=== PATIENT | female | born 1995 | race Caucasian/White ===

== ENCOUNTER 2023-03-29 02:15 | Inpatient (IN) | payer OTHER ==
[2023-03-29] MEDS ORDERED: ELECTROLYTE-148 SOLN 1,000 ML IV SCH (03:00)
[2023-03-29 03:20] LABS: BASO % 0.3 % (0-2.0); EOS % 2.2 % (0-4.5); HEMATOCRIT 37.7 % (32.4-45.2); HEMOGLOBIN 12.9 GM/dL (10.7-15.3); LYMPH % 22.1 % (8-40); MCHC 34.3 g/dl (32.0-36.0); MEAN CELL VOLUME 90.4 fl (80-96); MEAN PLT VOLUME 7.5 fl (7.5-11.1); MONO % 9.3 % (3.8-10.2); NEUT % 66.1 % (42.8-82.8); PLATELET COUNT 291 10^3/uL (134-434); RBC 4.16 M/mm3 (3.60-5.2); RDW 13.6 % (11.6-15.6); WHITE BLOOD COUNT 11.6 K/mm3 (4.0-10.0)
[2023-03-29 03:27] VITALS: BMI 27.4
[2023-03-29 03:30] LABS: INR 0.94 (0.83-1.09); PROTHROMBIN TIME (PATIENT) 10.9 SEC (9.7-13.0)
[2023-03-29 03:33] LABS: ACTIVATED PTT 28.2 SECONDS (25.2-36.5)
[2023-03-29 03:39] LABS: POTASSIUM 3.8 mmol/L (3.5-5.1)
[2023-03-29 03:41] LABS: BLOOD UREA NITROGEN 6.9 mg/dL (7-18); CALCIUM 8.9 mg/dL (8.5-10.1)
[2023-03-29 03:44] LABS: CREATININE 0.5 mg/dL (0.55-1.3)
[2023-03-29] MEDS ORDERED: OXYTOCIN 20 UNITS in 0.9% NS 20 UNIT/1,000 ML INFUS.BAG IV ONE (03:48)
[2023-03-29] MEDS ORDERED: METHYLERGONOVINE MALEATE 0.2 MG/1 ML AMP IM PRN (05:01)
[2023-03-29] MEDS ORDERED: BENZOCAINE 20% 57 GM BOTTLE TP PRN (05:01)
[2023-03-29] MEDS ORDERED: ACETAMINOPHEN 325 MG TABLET (FP) PO PRN (05:01)
[2023-03-29] MEDS ORDERED: WITCH HAZEL 50% (TUCKS) 40 PAD/JAR PAD TP PRN (05:01)
[2023-03-29] MEDS ORDERED: BISACODYL 10 MG SUPP.RECT RC PRN (05:01)
[2023-03-29] MEDS ORDERED: BENZOCAINE 28 GM HEMORRHOIDAL OINTMENT TP PRN (05:01)
[2023-03-29] MEDS ORDERED: OXYTOCIN 20 UNITS in 0.9% NS 20 UNIT/1,000 ML INFUS.BAG IV SCH (05:15)
[2023-03-29] MEDS: PRENATAL VITAMINS W/ FOLIC ACID TABLET (FP) PO SCH (09:14)
[2023-03-29] MEDS: IBUPROFEN 600 MG TABLET (FP) PO PRN ×2 (09:14→21:49)
[2023-03-30 06:39] LABS: BASO % 0.5 % (0-2.0); EOS % 2.5 % (0-4.5); HEMATOCRIT 33.6 % (32.4-45.2); HEMOGLOBIN 11.3 GM/dL (10.7-15.3); LYMPH % 25.2 % (8-40); MCH 31.4 pg (25.7-33.7); MCHC 33.7 g/dl (32.0-36.0); MEAN CELL VOLUME 93.3 fl (80-96); MEAN PLT VOLUME 7.7 fl (7.5-11.1); MONO % 7.4 % (3.8-10.2); NEUT % 64.4 % (42.8-82.8); PLATELET COUNT 265 10^3/uL (134-434); RDW 13.5 % (11.6-15.6); WHITE BLOOD COUNT 9.9 K/mm3 (4.0-10.0)
[2023-03-30] MEDS: PRENATAL VITAMINS W/ FOLIC ACID TABLET (FP) PO SCH (09:05)
[2023-03-30] MEDS: IBUPROFEN 600 MG TABLET (FP) PO PRN (19:15)
[2023-03-30] MEDS ORDERED: SENNOSIDES/DOCUSATE COMBO (SENNA PLUS) TABLET (UD) PO PRN (22:00)
[2023-03-31 08:39] VITALS: BP 112/69; PULSE 68; RESP 16; TEMP 98
[2023-03-31] MEDS: PRENATAL VITAMINS W/ FOLIC ACID TABLET (FP) PO SCH (10:11)
== END 2023-03-31 12:45 | disposition home or self-care (01) | DRG 560 ==
LOC: JDEL 02:15 → JLDR 02:37 → J3W 06:19
PROVIDERS: ADMIT Obstetrics & Gynecology; ATTEND Obstetrics & Gynecology
PROC: 0HQ9XZZ Repair Perineum Skin, External Approach (ICD-10-PCS; principal; 2023-03-29)
PROC: 10E0XZZ Delivery of Products of Conception, External Approach (ICD-10-PCS; 2023-03-29)
DX: O70.0 First degree perineal laceration during delivery (principal); Z3A.37 37 weeks gestation of pregnancy; Z37.0 Single live birth
CPT/HCPCS: 36415; 80048; 85025; 85610; 85730; 86780; 86850; 86900; 86901

== ENCOUNTER 2023-04-04 03:53 | Emergency (ER) | payer OTHER ==
[2023-04-04 04:07] VITALS: BP 125/87; PULSE 81; RESP 20; TEMP 98.2; BMI 27.3
[2023-04-04 04:47] LABS: INR 1.03 (0.83-1.09); PROTHROMBIN TIME (PATIENT) 11.9 SEC (9.7-13.0)
[2023-04-04] MEDS ORDERED: LIDOCAINE 1%/EPI 1:100000 (50 ML MULTI DOSE VIAL) ONE (04:49)
[2023-04-04 05:12] LABS: POTASSIUM 3.9 mmol/L (3.5-5.1)
[2023-04-04 05:15] LABS: ALBUMIN 3.2 g/dl (3.4-5.0); BLOOD UREA NITROGEN 16.4 mg/dL (7-18); CALCIUM 8.9 mg/dL (8.5-10.1)
[2023-04-04 05:19] LABS: CREATININE 0.8 mg/dL (0.55-1.3)
[2023-04-04 05:20] LABS: BILIRUBIN,TOTAL 0.7 mg/dL (0.2-1)
[2023-04-04 05:21] LABS: BASO % 0.3 % (0-2.0); EOS % 2.3 % (0-4.5); HEMATOCRIT 37.5 % (32.4-45.2); HEMOGLOBIN 12.5 GM/dL (10.7-15.3); LYMPH % 16.6 % (8-40); MCH 31.3 pg (25.7-33.7); MCHC 33.4 g/dl (32.0-36.0); MEAN CELL VOLUME 93.7 fl (80-96); MEAN PLT VOLUME 7.5 fl (7.5-11.1); MONO % 5.4 % (3.8-10.2); NEUT % 75.4 % (42.8-82.8); PLATELET COUNT 376 10^3/uL (134-434); RDW 13.7 % (11.6-15.6); WHITE BLOOD COUNT 10.4 K/mm3 (4.0-10.0)
[2023-04-04] MEDS ORDERED: IBUPROFEN 400 MG TABLET (FP) PO ONE ×2 (05:30→05:36)
== END 2023-04-04 06:43 | disposition home or self-care (01) ==
LOC: JER 03:53
DX: O72.1 Other immediate postpartum hemorrhage (principal); S31.41XA Laceration without foreign body of vagina and vulva, initial encounter; X58.XXXA Exposure to other specified factors, initial encounter
CPT/HCPCS: 36415; 80053; 85025; 85610; 86850; 86900; 86901; 99283-25

== ENCOUNTER 2023-05-01 17:24 | Emergency (ER) | payer OTHER ==
[2023-05-01 17:32] VITALS: BP 126/80; PULSE 118; RESP 20; TEMP 100.5; BMI 26.2
[2023-05-01 18:13] LABS: HEMATOCRIT 35.8 % (32.4-45.2); HEMOGLOBIN 12.4 GM/dL (10.7-15.3); MCH 30.9 pg (25.7-33.7); MCHC 34.7 g/dl (32.0-36.0); MEAN CELL VOLUME 89.1 fl (80-96); MEAN PLT VOLUME 7.1 fl (7.5-11.1); PLATELET COUNT 275 10^3/uL (134-434); RBC 4.02 M/mm3 (3.60-5.2); RDW 12.4 % (11.6-15.6)
[2023-05-01 18:35] LABS: POTASSIUM 3.5 mmol/L (3.5-5.1)
[2023-05-01 18:37] LABS: ALBUMIN 3.9 g/dl (3.4-5.0); BLOOD UREA NITROGEN 6.7 mg/dL (7-18); CALCIUM 8.5 mg/dL (8.5-10.1)
[2023-05-01 18:41] LABS: CREATININE 0.8 mg/dL (0.55-1.3)
[2023-05-01 18:42] LABS: BILIRUBIN,TOTAL 0.7 mg/dL (0.2-1); TOT PROT 7.6 g/dl (6.4-8.2)
[2023-05-01] MEDS ORDERED: CEPHALEXIN MONOHYDRATE 500 MG CAPSULE (UD) PO ONE (18:55)
[2023-05-01] MEDS ORDERED: IBUPROFEN 600 MG TABLET (FP) PO ONE ×2 (18:56→19:17)
[2023-05-01] MEDS ORDERED: CEPHALEXIN MONOHYDRATE 500 MG CAPSULE (UD) ONE (19:16)
== END 2023-05-01 19:24 | disposition home or self-care (01) ==
LOC: JER 17:24
DX: R50.9 Fever, unspecified (principal); N61.0 Mastitis without abscess; Z20.822 Contact with and (suspected) exposure to COVID-19
CPT/HCPCS: 0241U-QW; 36415; 80053; 85027; 99283-25

== ENCOUNTER 2024-12-01 16:57 | Emergency (ER) | payer OTHER ==
[2024-12-01 17:09] VITALS: RESP 18; BMI 29.4
[2024-12-01] MEDS ORDERED: KETOROLAC TROMETHAMINE 30 MG/1 ML VIAL ONE (17:41)
[2024-12-01] MEDS: KETOROLAC TROMETHAMINE 30 MG/1 ML VIAL IM ONE (17:54)
[2024-12-01] MEDS ORDERED: LIDOCAINE 4% PATCH TP ONE (18:15)
[2024-12-01] MEDS ORDERED: ACETAMINOPHEN INJECTION 100 ML ONE (18:15)
[2024-12-01] MEDS ORDERED: ONDANSETRON 4 MG/2 ML VIAL ONE (18:15)
[2024-12-01] MEDS: ONDANSETRON 4 MG/2 ML VIAL IVPUSH ONE (18:21)
[2024-12-01] MEDS: ACETAMINOPHEN 1000 MG/100 ML BAG IVPB ONE (18:21)
[2024-12-01] MEDS: LIDOCAINE 4% PATCH TP ONE (18:21)
[2024-12-01 18:22] LABS: HCG,QUALITATIVE URINE Positive; PH,URINE 6.5 (5.0-8.0); URINE APPEARANCE CLEAR; URINE BILIRUBIN NEGATIVE (NEGATIVE); URINE COLOR YELLOW; URINE GLUCOSE (UA) NEGATIVE (NEGATIVE); URINE KETONE NEGATIVE (NEGATIVE); URINE LEUK ESTERASE NEGATIVE (NEGATIVE); URINE NITRITE NEGATIVE (NEGATIVE); URINE PROTEIN NEGATIVE (NEGATIVE); URINE UROBILINOGEN 0.2 mg/dL (0.2-1.0)
[2024-12-01 18:25] LABS: BASO % 0.6 % (0-2.0); EOS % 2.6 % (0-4.5); HEMATOCRIT 38.7 % (32.4-45.2); HEMOGLOBIN 13.1 GM/dL (10.7-15.3); MCHC 33.9 g/dl (32.0-36.0); MEAN CELL VOLUME 88.6 fl (80-96); MEAN PLT VOLUME 7.1 fl (7.5-11.1); MONO % 10.8 % (3.8-10.2); PLATELET COUNT 414 10^3/uL (134-434); RBC 4.37 M/mm3 (3.60-5.2); RDW 13.7 % (11.6-15.6); WHITE BLOOD COUNT 8.2 K/mm3 (4.0-10.0)
[2024-12-01 18:27] LABS: INR 1.19 (0.83-1.09); PROTHROMBIN TIME (PATIENT) 13.1 SEC (9.7-13.0)
[2024-12-01 18:46] LABS: POTASSIUM 3.7 mmol/L (3.5-5.1)
[2024-12-01 18:48] LABS: ALBUMIN 4.4 g/dl (3.4-5.0); BLOOD UREA NITROGEN 8.3 mg/dL (7-18); CALCIUM 9.2 mg/dL (8.5-10.1)
[2024-12-01 18:51] LABS: CREATININE 0.7 mg/dL (0.55-1.3)
[2024-12-01 18:53] LABS: BILIRUBIN,TOTAL 0.5 mg/dL (0.2-1); TOT PROT 8.6 g/dl (6.4-8.2)
[2024-12-01 19:41] LABS: HIV INTERPRETATION NEGATIVE (NEGATIVE)
[2024-12-01 20:30] VITALS: BP 115/79; PULSE 80; TEMP 98.1
[2024-12-01] MEDS ORDERED: LIDOCAINE PATCH REMOVAL MC SCH (22:00)
== END 2024-12-01 20:30 | disposition home or self-care (01) ==
LOC: JER 16:57
PROC: 3E033NZ Introduction of Analgesics, Hypnotics, Sedatives into Peripheral Vein, Percutaneous Approach (ICD-10-PCS; principal; 2024-12-01)
DX: O26.891 Other specified pregnancy related conditions, first trimester (principal); R10.30 Lower abdominal pain, unspecified; Z3A.01 Less than 8 weeks gestation of pregnancy
CPT/HCPCS: 36415; 76817-TC; 80053; 81003; 83690; 84702; 84703; 85025; 85610; 85730; 86803; 86850; 86900; 86901; 87081; 87086; 87389; 99285-25; J0131

== ENCOUNTER 2024-12-08 16:25 | Emergency (ER) | payer OTHER ==
[2024-12-08 16:33] VITALS: BP 130/82; PULSE 81; RESP 18; TEMP 98.6; BMI 29.8
[2024-12-08 17:24] LABS: BASO % 0.5 % (0-2.0); EOS % 2.6 % (0-4.5); HEMATOCRIT 37.6 % (32.4-45.2); HEMOGLOBIN 12.8 GM/dL (10.7-15.3); LYMPH % 36.8 % (8-40); MCHC 33.9 g/dl (32.0-36.0); MEAN CELL VOLUME 88.4 fl (80-96); MEAN PLT VOLUME 7.1 fl (7.5-11.1); MONO % 7.9 % (3.8-10.2); NEUT % 52.2 % (42.8-82.8); PLATELET COUNT 383 10^3/uL (134-434); RBC 4.26 M/mm3 (3.60-5.2); RDW 13.8 % (11.6-15.6); WHITE BLOOD COUNT 8.3 K/mm3 (4.0-10.0)
[2024-12-08 17:53] LABS: POTASSIUM 4.1 mmol/L (3.5-5.1)
[2024-12-08 17:55] LABS: BLOOD UREA NITROGEN 7.9 mg/dL (7-18); CALCIUM 9.3 mg/dL (8.5-10.1)
[2024-12-08 17:58] LABS: CREATININE 0.6 mg/dL (0.55-1.3)
== END 2024-12-08 19:08 | disposition home or self-care (01) ==
LOC: JER 16:25
DX: O20.9 Hemorrhage in early pregnancy, unspecified (principal); Z3A.00 Weeks of gestation of pregnancy not specified
CPT/HCPCS: 36415; 80048; 84702; 85025; 99283-25

== ENCOUNTER 2024-12-30 14:14 | Emergency (ER) | payer OTHER ==
[2024-12-30 15:16] VITALS: BP 126/88; PULSE 84; RESP 18; TEMP 98.1; BMI 20.1
[2024-12-30 15:44] LABS: EPI CELLS 22 /uL (0-25.1); HYALINE CASTS 0 /uL (0-3.1); URINE APPEARANCE CLEAR; URINE BACTERIA 106 /uL (0-1359); URINE BILIRUBIN NEGATIVE (NEGATIVE); URINE COLOR ORANGE; URINE GLUCOSE (UA) NEGATIVE (NEGATIVE); URINE KETONE NEGATIVE (NEGATIVE); URINE LEUK ESTERASE TRACE (NEGATIVE); URINE NITRITE NEGATIVE (NEGATIVE); URINE PROTEIN NEGATIVE (NEGATIVE); URINE RBC 2873 /uL (0-23.9); URINE UROBILINOGEN 0.2 mg/dL (0.2-1.0); URINE WBC 33 /uL (0-25.8)
[2024-12-30 15:49] LABS: ABSOLUTE IMMATURE GRANULOCYTES 0.04 x10^3/uL (0.0-0.031); BASOPHILS # 0.04 x10^3/uL (0.01-0.08); EOSINOPHIL % 2.1 % (0.7-5.8); EOSINOPHILS # 0.17 x10^3/uL (0.04-0.36); HEMATOCRIT 38.8 % (34.1-44.9); HEMOGLOBIN 13.1 g/dL (11.2-15.7); MCHC 33.8 g/dl (32.2-35.5); MEAN PLT VOLUME 8.9 fl (9.4-12.3); MONOCYTE % 7.3 % (4.7-12.5); PLATELET COUNT 346 x10^3/uL (182-369); RDW 12.7 % (12.1-16.5)
[2024-12-30 16:06] LABS: INR 1.15 (0.83-1.09); POTASSIUM 3.9 mmol/L (3.5-5.1); PROTHROMBIN TIME (PATIENT) 12.5 SEC (9.7-13.0)
[2024-12-30 16:09] LABS: ACTIVATED PTT 31.9 SECONDS (25.2-36.5); ALBUMIN 4.2 g/dl (3.4-5.0); BLOOD UREA NITROGEN 8.3 mg/dL (7-18); CALCIUM 9.6 mg/dL (8.5-10.1)
[2024-12-30 16:13] LABS: CREATININE 0.6 mg/dL (0.55-1.3)
[2024-12-30 16:14] LABS: BILIRUBIN,TOTAL 0.4 mg/dL (0.2-1); TOT PROT 8.3 g/dl (6.4-8.2)
[2024-12-30] MEDS ORDERED: CEPHALEXIN MONOHYDRATE 500 MG CAPSULE (UD) ONE (17:38)
[2024-12-30] MEDS ORDERED: ACETAMINOPHEN 500 MG TABLET (FP) ONE (18:08)
[2024-12-30] MEDS: ACETAMINOPHEN 500 MG TABLET (FP) PO ONE (18:09)
[2024-12-30] MEDS: CEPHALEXIN MONOHYDRATE 500 MG CAPSULE (UD) PO ONE (18:33)
== END 2024-12-30 19:06 | disposition home or self-care (01) ==
LOC: JER 14:14
DX: O20.9 Hemorrhage in early pregnancy, unspecified (principal); O26.891 Other specified pregnancy related conditions, first trimester; R10.30 Lower abdominal pain, unspecified; Z3A.10 10 weeks gestation of pregnancy
CPT/HCPCS: 36415; 76817-TC; 80053; 81003; 84702; 85025; 85610; 85730; 87086; 99284-25